=== PATIENT | male | born 1970 | race Two or more races ===

== ENCOUNTER 2017-05-15 15:51 | Emergency (ER) | payer SELFPAY ==
[~2017-05-15] VITALS: Ht 182.9 cm; Wt 105.3 kg
[2017-05-15 17:21] LABS: HEMATOCRIT 39.7 % (38.0-50.0); MCH 24.7 PG (29.0-34.0); MCV 82.5 FL (86-99); MEAN PLAT.VOLUME 8.7 uM^3 (9.0-12.4); PLATELET COUNT 366 K/uL (156-360); RBC DIS.WIDTH-CV 16.4 % (11.8-14.6); RBC DIS.WIDTH-SD 49.1 % (39-53); RED BLOOD COUNT 4.81 M/uL (4.00-5.50); WHITE BLOOD COUNT 10.2 K/uL (4.1-10.2)
[2017-05-15 17:30] VITALS: BP 125/72
[2017-05-15 17:30] LABS: CHLORIDE 108 mEq/L (99-109); POTASSIUM 4.7 mEq/L (3.7-5.4); SODIUM 136 mEq/L (136-147)
[2017-05-15 17:31] LABS: GLUCOSE 149 mg/dL (70-99)
[2017-05-15 17:33] LABS: ANION GAP 9 MEQ/L (2-14)
[2017-05-15 17:35] LABS: GFR ESTIMATE (CALCULATED) > 59 mL/min/
[2017-05-15 17:36] LABS: UREA NITROGEN (BUN) 18 mg/dL (9-23)
[2017-05-15 17:42] LABS: TROP-I INTERPRETATION NEGATIVE; TROPONIN-I 0.01 ng/mL (0.0-0.30)
== END 2017-05-15 18:00 | disposition left against medical advice (07) ==
LOC: EME 15:51
PROVIDERS: Emergency Medicine
DX: R07.9 Chest pain, unspecified (principal); I25.2 Old myocardial infarction; Z95.5 Presence of coronary angioplasty implant and graft; K50.90 Crohn's disease, unspecified, without complications; Z79.82 Long term (current) use of aspirin; F17.200 Nicotine dependence, unspecified, uncomplicated; Z88.5 Allergy status to narcotic agent; Z88.8 Allergy status to other drugs, medicaments and biological substances
CPT/HCPCS: 71020; 80048; 84484; 85027; 93005; 99281; 99285